=== PATIENT | female | born 1990 | race Asian ===

== ENCOUNTER 2020-12-29 11:46 | Day surgery (SDC) | payer OTHER ==
[2020-12-29 12:29] LABS: RED BLOOD COUNT 4.57 M/UL (4.00-5.10); WHITE BLOOD COUNT 9.5 K/UL (4.5-11.0)
[2020-12-29] MEDS ORDERED: IBUPROFEN600 MG PO (16:01)
[2020-12-29] MEDS ORDERED: HYDROCODONE-AC1 EACH PO (16:01)
== END 2020-12-29 20:10 | disposition home or self-care (01) ==
LOC: OR 11:46 → MED SURG 4 16:19 → OR 20:10
PROVIDERS: Obstetrics & Gynecology
PROC: 10T24ZZ Resection of Products of Conception, Ectopic, Percutaneous Endoscopic Approach (ICD-10-PCS; principal; 2020-12-29 14:00)
DX: O00.101 Right tubal pregnancy without intrauterine pregnancy (principal); Z20.822 Contact with and (suspected) exposure to COVID-19
CPT/HCPCS: 84702; 85027; 86850; 86900; 86901; 87635; C1769; J2250; J2270; J3010; J7120